=== PATIENT | male | born 1985 | race African-American/Black ===

== ENCOUNTER 2020-07-18 12:31 | Emergency (ER) | payer SELFPAY ==
[~2020-07-18] VITALS: Ht 193 cm; Wt 120.2 kg
--- NOTE | 2020-07-18 12:31 | NUR ---
PT HERE WITH POLICE, PT STS HE HAS BEEN VOMITING SINCE LAST NIGHT, PT STS HX OF COLON CA. PT DENIES SOB CP DIARRHEA. PT PLAZCED ON charge operator labs drawn
[2020-07-18] MEDS ORDERED: NS 1000ML 1,000 ML ONE (12:39)
[2020-07-18] MEDS ORDERED: ZOFRAN ONE (12:39)
--- NOTE | 2020-07-18 12:45 | NUR ---
pt yelling about having handcuff removed pt yelling obcenities,and uncooperative with hospital and [facility] personel pt has taken off two masks.
[2020-07-18 12:47] VITALS: BP 160/102
[2020-07-18] MEDS ORDERED: NS 1000ML 1,000 ML IV STA (12:47)
[2020-07-18] MEDS ORDERED: ZOFRAN IV STA (12:47)
--- NOTE | 2020-07-18 12:49 | ER.PDOC ---
General Chief Complaint: Requesting Medical Care Stated Complaint: VOMITING Time seen by MD: 12:47 Source: patient Exam Limitations: no limitations History of Present Illness Initial Comments Generalized abdominal pain and vomiting. No diarrhea, fever or chills. Severity/Quality: moderate, cramping Radiation: no radiation Associated Symptoms: nausea/vomiting Exacerbated by: nothing Relieved By: nothing Vital Signs First Vital Signs Date Time Temp Pulse Resp B/P (MAP) Pulse Ox O2 Delivery O2 Flow Rate FiO2 07/18/20 12:35 98.8 80 20 99 07/18/20 14:25 180/90 (120) Last Vital Signs Date Time Temp Pulse Resp B/P (MAP) Pulse Ox O2 Delivery O2 Flow Rate FiO2 07/18/20 14:25 98.8 90 20 180/90 (120) 99 Past Medical History Medical History: other (Colon cancer) Surgical History: no surgical history Family History Significant Family History: no pertinent family hx Social History Smoking: non-smoker Drug Use: marijuana Constitutional: no symptoms reported EENTM: no symptoms reported Respiratory: no symptoms reported Cardiovascular: no symptoms reported Gastrointestinal: see HPI Genitourinary: no symptoms reported All Other Systems: Reviewed and Negative Physical Exam General Appearance: Obese Neck: Non-Tender, Full Range of Motion, Supple, Normal Inspection Respiratory: chest non-tender, lungs clear, normal breath sounds, no respiratory distress, no accessory muscle use Cardiovascular: Normal Peripheral Pulses, Regular Rate, Rhythm, No Edema, No Ga llop, No JVD, No Murmur Gastrointestinal: Normal Bowel Sounds, No Organomegaly, No Pulsatile Mass, Guarding, Tenderness (generalized) Back: Normal Inspection, No CVA Tenderness, No Vertebral Tenderness Extremities: Normal Range of Motion, Non-Tender, Normal Inspection, No Pedal Edema, No Calf Tenderness, Normal Capillary Refill, Pelvis Stable 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 (07/18/20 12:45) Urinalysis (07/18/20 12:45) 0.9 % Sodium Chloride (Ns 1000ml) (07/18/20 12:47) Ondansetron Hcl/Pf (Zofran) (07/18/20 12:47) Promethazine Hcl (Phenergan) (07/18/20 13:49) Promethazine Hcl (Phenergan) (07/18/20 13:51) Vital Signs Date Time Temp Pulse Resp B/P (MAP) Pulse Ox O2 Delivery O2 Flow Rate FiO2 07/18/20 14:25 98.8 90 20 180/90 (120) 99 07/18/20 12:47 98.8 90 20 99 07/18/20 12:47 98.8 90 20 99 07/18/20 12:35 98.8 80 20 99 Administered Medications Medications (Trade) Dose Ordered Sig/Paolo Route PRN Reason Start Time Stop Time Status Last Admin Dose Admin Ondansetron HCl (Zofran) 4 mg STAT STAT IV 07/18/20 12:47 07/18/20 12:48 DC 07/18/20 12:47 4 MG Promethazine HCl (Phenergan) 25 mg STAT STAT IV 07/18/20 13:49 07/18/20 13:50 DC 07/18/20 13:58 25 MG Sodium Chloride 1,000 ml @ 1,200 mls/hr Q50M STAT IV 07/18/20 12:47 07/18/20 13:36 DC 07/18/20 12:47 1,200 MLS/HR Laboratory Tests Test 07/18/20 12:40 07/18/20 12:51 White Blood Count 12.0 10^3/uL (4.5-11.0) H Red Blood Count 5.41 10^6/uL (4.50-5.90) Hemoglobin 15.2 g/dL (13.9-16.3) Hematocrit 44.0 % (37.0-53.0) Mean Corpuscular Volume 81.3 fL (78-100) Mean Corpuscular Hemoglobin 28.1 pg (26-34) Mean Corpuscular Hemoglobin Concent 34.5 g/dL (33-36.5) Red Cell Distribution Width 13.4 % (11.5-14.5) Platelet Count 260 10^3/uL (150-400) Mean Platelet Volume 10.4 fL (7.8-11.0) Neutrophils (%) (Auto) 79.6 % (41.0-85.0) Lymphocytes (%) (Auto) 15.9 % (24.0-44.0) L Monocytes (%) (Auto) 4.1 % (5.0-12.0) L Neutrophils # (Auto) 9.5 10^3/uL (1.8-7.7) H Lymphocytes # (Auto) 1.90 10^3/uL1 (1.0-4.8) Monocytes # (Auto) 0.5 10^3/uL (0.3-0.8) Absolute Immature Granulocyte (auto 0.02 10^3 u/L (0-2) Absolute Eosinophils (auto) 0.0 10^3/uL (0.0-0.2) Immature Granulocytes % 0.20 % (0.00-0.50) Eosinophils % 0.1 % (0.0-5.0) Basophils % 0.1 % (0.0-0.2) Basophils # 0.0 10^3/uL (0.0-0.1) Prothrombin Time 10.7 SEC (9.3-11.3) Prothrombin Time INR (Non-Therap) 1.1 Activated Partial Thromboplast Time 25.6 SEC (24.67-30.72) Sodium Level 135 mmol/L (132-145) Potassium Level 3.9 mmol/L (3.6-5.2) Chloride Level 99.0 mmol/L (96-109) Carbon Dioxide Level 26.1 mmol/L (20.0-32) Anion Gap 13.8 Blood Urea Nitrogen 9 mg/dL (7-18) Creatinine 1.28 mg/dL (0.59-1.40) Estimated GFR () 77.4 (>/=60) Est GFR (CKD-EPI)(Non-Afr [place]) 64.0 (>/=60) BUN/Creatinine Ratio 7.0 Glucose Level 131 mg/dL (70-110) H Calcium Level 10.0 mg/dL (8.4-10.5) Total Bilirubin 0.6 mg/dL (0.2-1.0) Aspartate Amino Transferase (AST) 55 U/L (0-35) H Alanine Aminotransferase (ALT) 83 U/L (12-78) H Alkaline Phosphatase 65 U/L (50-136) Total Protein 9.4 g/dL (6.4-8.2) H Albumin 3.9 g/dL (3.4-5.0) Globulin 5.5 Albumin/Globulin Ratio 0.709 Lipase 113 U/L (114-286) L Helicobacter pylori Screen NEGATIVE (NEGATIVE) Urine Collection Type VOID Urine Color YELLOW (YELLOW) Urine Appearance CLEAR (CLEAR) Urine Bilirubin NEGATIVE MG/DL (NEGATIVE) Urine Ketones NEGATIVE (NEGATIVE) Urine Specific [place] 1.020 (1.005-1.035) Urine pH 8.5 (5.0-6.0) Urine Protein NEGATIVE (NEGATIVE) Urine Urobilinogen NEGATIVE (NEGATIVE) Urine Nitrate NEGATIVE (NEGATAIVE) Urine Leukocyte Esterase NEGATIVE (NEGATIVE) Urine Blood NEGATIVE (NEGATIVE) Urine RBC RBC/HPF (NONE SEEN) Urine WBC WBC/HPF (0-2) Urine Glucose NORMAL (NEGATIVE) Progress Progress CT abdomen/pelvis: There are findings of diffuse steatosis of the liver. No acute abnormalities are seen in the abdomen and pelvis. Patient is feeling better to go home. ER DEPART Departure Time of Disposition: 15:00 Disposition: 01 HOME, SELF-CARE Impression: Primary Impression: Abdominal pain Additional Impressions: Nausea & vomiting Hepatic steatosis Condition: Improved Referrals: PCP,UNKNOWN (PCP) PRIMARY CARE PROVIDER Additional Instructions: Zofran ODT Start feeding with clear liquids and advance diet as tolerated F/U with your PCP in 2-3 days Return to ED if worsening or concerns Duration or Time Spent with Pa: 60 min Problem Qualifiers Primary Impression: Abdominal pain Abdominal location: unspecified location Qualified Codes: R10.9 - Uns pecified abdominal pain Additional Impressions: Nausea & vomiting Vomiting type: unspecified Vomiting Intractability: non-intractable Qualified Codes: R11.2 - Nausea with vomiting, unspecified JERILYN YANES MD Jul 18, 2020 12:49
[2020-07-18 12:56] LABS: BASOPHIL % 0.1 % (0.0-0.2); EOSINOPHIL % 0.1 % (0.0-5.0); LYMPHOCYTES % 15.9 % (24.0-44.0); MEAN CORP HGB 28.1 pg (26-34); MONOCYTES # 0.5 10^3/uL (0.3-0.8); MONOCYTES % 4.1 % (5.0-12.0); NEUTROPHIL # 9.5 10^3/uL (1.8-7.7); NEUTROPHILS % 79.6 % (41.0-85.0); PLATELET COUNT 260 10^3/uL (150-400); RED CELL DISTRIBUTION WIDTH 13.4 % (11.5-14.5)
[2020-07-18 13:09] LABS: APPEARANCE,URINE CLEAR (CLEAR); BILIRUBIN,URINE NEGATIVE (NEGATIVE); UA COLOR YELLOW (YELLOW); UROBILINOGEN,URINE NEGATIVE (NEGATIVE)
[2020-07-18 13:14] LABS: CARBON DIOXIDE 26.1 mmol/L (20.0-32)
--- NOTE | 2020-07-18 13:36 | NUR ---
pt to ct scan via wheelchair
[2020-07-18] MEDS ORDERED: PHENERGAN IV STA (13:49)
[2020-07-18] MEDS ORDERED: PHENERGAN ONE (13:51)
--- NOTE | 2020-07-18 14:07 | DIREP ---
PROCEDURE:CT ABDOMEN/PELVIS W/ CONTRAST COMPARISON:None. INDICATIONS:Generalized abdominal pain and vomiting TECHNIQUE:Axial images were created through the abdomen and pelvis with non-ionic intravenous contrast material. No oral contrast was administered. Sagittal and coronal reconstructions were performed from source images. FINDINGS: LUNG BASES:Normal. No visible pulmonary or pleural disease. LIVER:Diffuse decreased attenuation is seen throughout the liver. BILIARY:Normal. No visible dilatation or calcification. PANCREAS:Normal. No lesion, fluid collection, ductal dilatation, or atrophy. SPLEEN:Normal. No enlargement or focal lesion. ADRENALS:Normal. No mass or enlargement. URINARY TRACT:Normal. No focal lesions or hydronephrosis. AORTA/VASCULAR:Normal. No aneurysm. RETROPERITONEUM:Normal. No mass or adenopathy. BOWEL/MESENTERY:Normal. There is no intestinal obstruction, free fluid, free air or mesenteric inflammatory changes. Normal appendix. ABDOMINAL WALL:Normal. No mass or hernia. PELVIC ORGANS:Normal. No visible mass. Pelvic organs appropriate for patient age. BONES:Normal for age. No bony lesion or acute fracture. OTHER:Negative. CONCLUSION:There are findings of diffuse steatosis of the liver. No acute abnormalities are seen in the abdomen and pelvis. Dictated by: Philip Pinedo M.D. on 07/18/2020 at 02:02 PM
[2020-07-18 14:25] VITALS: BP 180/90
== END 2020-07-18 15:16 | disposition home or self-care (01) ==
LOC: ER 12:31
DX: K76.0 Fatty (change of) liver, not elsewhere classified (principal); R11.2 Nausea with vomiting, unspecified; Z79.899 Other long term (current) drug therapy; Z85.038 Personal history of other malignant neoplasm of large intestine
CPT/HCPCS: 36415; 74177; 80053; 81003; 83690; 85025; 85610; 85730; 86677; 96361; 96374; 96375; 99285; J2405; J2550; J7030; Q9965